=== PATIENT | female | born 1945 | race Caucasian/White ===

== ENCOUNTER 2017-05-01 02:18 | Inpatient (IN) | payer OTHER, MEDICARE ==
[~2017-05-01] VITALS: Ht 167.6 cm; Wt 70.3 kg
[2017-05-01] MEDS ORDERED: OXYCODONE HCL5 M2 PO (06:50)
[2017-05-01] MEDS ORDERED: TRAZODONE HCL50 M1 PO (06:51)
--- NOTE | 2017-05-01 09:50 | Operative Report ---
Operative/Inv Procedure Report Surgery Date: 05/01/17 Name of Procedure: Left total hip arthroplasty Pre-Operative Diagnosis: Left hip primary osteoarthritis Post-Operative Diagnosis: Same with final pathology pending Estimated Blood Loss: 150 mL Surgeon/Curam Developer: Melissa REYES,Derian Gould PA Anesthesia: general endotracheal tube Implants: Thorp secure fit femoral stem size 9 with a 127 neck angle Size 52 Trident acetabulum 36-2.5 Biolox femoral head Drains: none Specimens: Femoral head and acetabular reamings Microbiology: Urine Complications: None Condition: Stable Operative Indication: Patient is a 71-year-old woman with worsening hip pain on the left. She was diagnosed with osteoarthritis. Ongoing symptoms interfere with normal activities of daily living. Due to the severity of her osteoarthritis and lack of improvement with conservative measures, she wished to proceed with total hip arthroplasty. Risks, benefits and expectations of the surgical procedure were discussed which included but were not limited to persistent hip pain, need for substance surgery, infection, DVT, injury to blood vessel or nerve, leg length discrepancy and dislocation and anesthesia risks Operative/Procedure Note Note: Patient was brought to the operating room and transferred to the operating table. Once under appropriate anesthesia the patient was placed into a right lateral decubitus position with left side up. All bony prominences were well- padded. left lower external he was prepped and draped in standard fashion. Preoperative IV antibiotic's were given prophylactically. A standard posterior incision was made for anticipated superior approach to the hip. Incision was taken down sharply to the underlying fascia. The fascia was incised in line with the skin incision. This was primarily to the gluteus ainsley fascia. The retractors were placed. Hip was internally rotated placing the external rotators on tension. The piriformis is identified and reflected posteriorly for later repair. The interval between the gluteus minimus tendon and the posterior superior capsule was identified and a retractor was placed in this interval. A central portion of the posterior capsule was incised and reflected posteriorly. Superior and inferior portions of the capsule were excised. There was some generalized oozing throughout the procedure these were cauterized as needed. Hip was then dislocated. Severe end-stage degenerative changes of the femoral head were noted. Degenerative labral tissues were also noted. The femoral neck cut was then made based on preoperative templating and intraoperative measurements. I then exposed the acetabulum. End-stage degenerative changes of the acetabulum were confirmed as well. The labrum was excised circumferentially. Any remaining soft tissues were removed from the acetabular fossa with curettes. Reaming started a size 46 and progressed was size 51 for anticipated insertion of a size 52 acetabulum. After the 51 reamer I trialed a 50 trial. I was satisfied with the circumferential reaming and proceeded with copious irrigation followed by insertion of the definitive size 52 acetabular component at the appropriate anteversion and abduction based on anatomy, preoperative x-rays and the Vivi tower. Excellent scratch fit. I then placed 2 screws in the safe zone in standard fashion. After irrigation I placed the definitive liner to accept a 36 m femoral head. The locking mechanism was confirmed. I then placed a clean lap sponge in the acetabulum to protect the polyethylene during preparation of the femur. The leg was internally rotated 90 osteotome to lateralize my insertion site. This followed by hand reamers up to a size 8. It appeared that patient may need a slightly larger size but I trialed with the trial size 8. The broach itself she's was below my neck cut and therefore proceeded to prepare for size 9 femur. Also a size 9 would fit in the proximal femur. I felt that the 9 was a better size. I then broached to a size 9 after reaming to the appropriate size. Excellent scratch fit with a 9 broach. I did a trial reduction. I was satisfied with this the stability. This was later confirmed during the end of the procedure. I was satisfied with the 127 neck angle even though I did a trial 132 as well. I felt that match patient's anatomy and placed the abductors a good muscle tension. Leg lengths were good as well.. I then removed the trial components. Copious irrigation femoral canal followed. I then inserted the definitive size 9 Thorp secure fit femoral stem excellent scratch fit. Trialed a -2.5 femoral head and I was satisfied with the stability as well as cheondoism of leg lengths. There was no evidence of anterior instability with simultaneous extension and external rotation. No sign of posterior stability with simultaneous internal rotation adduction and process control supervisor flexion greater than 90. No significant tightness with the leg in full extension either. Leg lengths were checked again and I was satisfied with this. I removed the trial femoral head and dried the trunnion. The definitive size 36-2.5 Biolox femoral head was then inserted and the locking mechanism was confirmed. Hip was reduced and again the stability was confirmed. Opus irrigation followed. Every level of closure was followed by copious irrigation. The posterior capsule and piriformis were repaired. Fascia was closed with interrupted #1 Vicryl suture. Subcutaneous tissues closed in 2 layers with 2-0 Vicryl skin was closed with christine. Appropriate dressings were applied and patient was awakened and taken to recovery room in good condition. Blood loss was approximately 150 mL. No intraoperative complications Discharge Disposition: PACU
--- NOTE | 2017-05-01 09:53 | Admission Core Measures ---
Acute Coronary Syndrome (CM) ACS Core Measures Acute Coronary Syndrome Diagnosis No Congestive Heart Failure (NEW) CHF Core Measures Congestive Heart Failure Diagnosis No Cerebrovascular Accident (NEW) CVA Core Measures CVA/TIA Diagnosis No Venous Thromboembolism VTE Core Paula (View Protocol) VTE Risk Factors Surgery No Mechanical VTE Prophylaxis d/t N/A MechProphylax Ordered No VTE Pharm Prophylaxis d/t NA PharmProphylax ordered Problem List As ranked by this Provider includes Assessment & Plan 1. Arthritis of left hip HOME MEDS Home Med List Oxycodone HCl 5 MG CAPSULE 1 CAP PO 4XDP pain (Reported) Trazodone HCl 50 MG TABLET 1 TAB PO QPM sleep (Reported)
--- NOTE | 2017-05-01 10:43 | RADIOLOGY REPORT ---
EXAMINATION: XR HIP, LEFT CLINICAL INFORMATION: Status post total hip replacement COMPARISON: 04/09/2017 x-ray TECHNIQUE: Single portable view of the left hip. FINDINGS: Postsurgical changes of total left hip replacement. The acetabular and femoral compartments of the prosthesis are well aligned. Soft tissue air in the left gluteal region , expected in post operative status. Surgical christine in the left gluteal region noted. There is no evidence of fracture or loosening of the prosthesis. IMPRESSION: Status post total left hip replacement.
[2017-05-01 13:35] VITALS: BP 112/68
--- NOTE | 2017-05-01 14:32 | PN- Orthopedic ---
Subjective Subjective: POC feeling well, no complaints, minimal pain, good spirits. Objective Vital Signs and I&Os Vital Signs Date Time Temp Pulse Resp B/P B/P Pulse O2 O2 Flow FiO2 Mean Ox Delivery Rate 05/01 1335 98.0 72 18 112/68 97 Room Air Room Air Physical Exam: Well-developed well-nourished no apparent distress. HEENT: Atraumatic, extraocular motion intact Neck: Supple, no lymphadenopathy Respiratory: No respiratory distress Extremities: No edema left lower extremity hip dressing in place, abduction pillow in place Dressing clean dry and intact. Mild thigh swelling. No shortening or rotation Hip range of motion is limited and without unexpected pain Neurovascularly intact distally Bilateral calves are supple, nontender. Neuro: Alert and oriented x3 Psych: Mood affect normal, normal memory normal judgment. Skin: Warm and dry, no rash on exposed skin Assessment/Plan Assessment/Plan Postop day #0 status post left total hip arthroplasty Perioperative antibiotics. Pain medication as needed. Out of bed Physical therapy, weightbearing as tolerated IV fluids Regular diet Follow a.m. labs Eliquis for DVT prophylaxis starting tomorrow ALPS for DVT prophylaxis Regular home meds Dressing change postop day 2 Core Measures Venous Thromboembolism VTE Risk Factors Surgery No Mechanical VTE Prophylaxis d/t N/A MechProphylax Ordered No VTE Pharm Prophylaxis d/t NA PharmProphylax ordered
--- NOTE | 2017-05-01 14:34 | Surgical Discharge Summary ---
Visit Information Visit Dates Admission Date: 05/01/17 Discharge Date: 05/04/17 History of Present Illness Chief Complaint: Left hip pain secondary to primary unilateral osteoarthritis Medical History Neurological: NONE EENT: NONE Cardiovascular: NONE Respiratory: NONE Gastrointestinal: NONE Hepatic: NONE Renal: NONE Musculoskeletal: NONE Psychiatric: NONE Endocrine: NONE Blood Disorders: NONE Isolation History: Standard Surgical History Pertinent Surgical History: non-contributory Psychosocial History What is Your Primary Language? Ukrainian Review of Systems: noncontributory Hospital Course Course Attending Physician: Melissa REYES,[facility] Primary Care Physician: Socorro REYES,[facility] Course: Patient underwent left total hip arthroplasty secondary to her arthritis, surgery well without complications. She was transferred to the floor. She had an uneventful postoperative course, laboratory values were acceptable, vital signs stable, she performed well with physical therapy and was discharged after short postoperative stay. Complications: None Allergies: Coded Allergies: No Known Allergies (04/09/17) Disposition Summary Disposition Principal Diagnosis: Left primary unilateral hip osteoarthritis Additional Diagnosis: Status post left total hip arthroplasty Discharge Disposition: home health services Discharge Instructions General Discharge Information Code Status: Full Code Patient's Diet: Regular Patient's Activity: Per total hip precautions, weightbearing as tolerated Follow-Up Instructions/Appts: Follow-up as outpatient in 2 weeks [facility] for DVT prophylaxis Pain medication as needed Medications at Discharge Discharge Medications: Stop taking the following medications: Oxycodone HCl (Oxycodone HCl) 5 MG CAPSULE ORAL 4 times daily as needed Continue taking these medications: Trazodone HCl (Trazodone HCl) 50 MG TABLET 1 Tablet ORAL Every night Comments: Last Taken: 05/03/17 Time: 9:15 PM Start taking the following new medications: Apixaban (Eliquis) 2.5 MG TABLET 2.5 Milligram ORAL TWICE DAILY Qty = 60 No Refills Comments: Last Taken: 05/04/17 Time: 8:30 AM Docusate Sodium (Docusate Sodium) 100 MG CAPSULE 100 Milligram ORAL THREE TIMES DAILY Qty = 30 No Refills Comments: Last Taken: 05/04/17 Time: 8:30 AM Oxycodone HCl/Acetaminophen (Percocet 5-325 MG Tablet) 5 MG-325 MG TABLET 1-2 Tablet ORAL EVERY 4 HOURS NEEDED as needed for PAIN Qty = 36 No Refills Comments: Last Taken: 05/03/17 Time: 10:15 PM Polyethylene Glycol 3350 (Miralax) 17 GRAM/DOSE POWDER 17 Gram ORAL DAILY as needed for CONSTIPATION Qty = 7 No Refills Comments: Last Taken: 05/04/17 Time: 8:30 AM Sennosides/Docusate Sodium (Senna Plus Tablet) 8.6 MG-50 MG TABLET 2 Tablet ORAL Every night as needed for CONSTIPATION Qty = 20 No Refills Comments: Last Taken: 05/03/17 Time: 9:15 PM
[2017-05-01 16:08] VITALS: BP 108/70
[2017-05-01 18:22] VITALS: BP 102/70
[2017-05-01 20:32] VITALS: BP 100/60
[2017-05-01 21:39] VITALS: BP 100/60; BP 108/70
[2017-05-02 00:09] VITALS: BP 102/60
[2017-05-02 04:47] VITALS: BP 110/70
[2017-05-02 06:28] VITALS: BP 110/70
--- NOTE | 2017-05-02 07:21 | PN- Orthopedic ---
See Addendum Subjective Subjective: Complaints of headache, no other significant complaints, usual left hip postoperative pain as expected. No acute events overnight. Objective Vital Signs and I&Os Vital Signs Date Time Temp Pulse Resp B/P B/P Pulse O2 O2 Flow FiO2 Mean Ox Delivery Rate 05/02 0628 98.1 73 20 110/70 96 05/02 0447 98.1 73 20 110/70 96 05/02 0009 98.2 68 20 102/60 95 05/01 2139 98.2 64 18 100/60 94 05/01 2032 98.2 64 18 100/60 94 05/01 1822 97.9 74 18 102/70 97 05/01 1608 97.6 68 18 108/70 92 05/01 1335 98.0 72 18 112/ 97 Room Air Room Air Intake & Output 05/02 0800 05/02 0000 05/01 1600 05/01 0800 05/01 0000 04/30 1600 Intake Total 930 240 Output Total 900 1800 Balance 30 -1560 Intake, IV 450 Intake, Oral 480 240 Output, Urine 900 1800 Patient 155 lb Weight Weight Reported by Patient Measurement Method Physical Exam: Well-developed well-nourished no apparent distress. HEENT: Atraumatic, extraocular motion intact Neck: Supple, no lymphadenopathy Respiratory: No respiratory distress Extremities: No edema Left lower extremity hip dressing in place, Dressing clean dry and intact Mild thigh swelling No signs of infection. No shortening or rotation Abduction pillow in place Hip range of motion is limited and without unexpected pain Neurovascularly intact distally Bilateral calves are supple, nontender. Neuro: Alert and oriented x3 Psych: Mood affect normal, normal memory normal judgment. Skin: Warm and dry, no rash on exposed skin Results Last 48 Hours of Labs: Laboratory Tests 05/02 0710 Chemistry Sodium Pending Potassium Pending Chloride Pending Carbon Dioxide Pending Anion Gap Pending BUN Pending Creatinine Pending BUN/Creatinine Ratio Pending Hematology CBC w Diff Pending WBC Pending RBC Pending Hgb Pending Hct Pending MCV Pending MCH Pending MCHC Pending RDW Pending Plt Count Pending MPV Pending Assessment/Plan Assessment/Plan Postop day #1 status post left total hip arthroplasty Perioperative antibiotics. Pain medication as needed. Out of bed Physical therapy, weightbearing as tolerated DC IV fluids Noriega removed, trial of void Regular diet Follow a.m. labs Eliquis for DVT prophylaxis starting this morning Celebrex for postoperative pain/anti-inflammatory ALPS for DVT prophylaxis Regular home meds Dressing change postop day 2 Core Measures Venous Thromboembolism VTE Risk Factors Surgery No Mechanical VTE Prophylaxis d/t N/A MechProphylax Ordered No VTE Pharm Prophylaxis d/t NA PharmProphylax ordered
[2017-05-02 08:17] LABS: ABSOLUTE BASOPHIL COUNT 0 /CUMM (0.0-0.2); ABSOLUTE EOSINOPHIL COUNT 0 /CUMM (0.0-0.7); ABSOLUTE GRANULOCYTE CT 5.5 /CUMM (1.4-6.5); ABSOLUTE LYMPH COUNT 1.6 /CUMM (1.2-3.4); ABSOLUTE MONOCYTE COUNT 0.7 /CUMM (0.10-0.60); BASOPHIL % 0.4 % (0.0-2.0); EOSINOPHIL % 0.3 % (0-5); GRANULOCYTE % 69.8 % (42.2-75.2); MEAN CORPUSCULAR HGB 31.9 PG (27.0-31.0); MEAN CORPUSCULAR HGB CONC 33.9 G/DL (33.0-37.0); MEAN PLATELET VOLUME 7.2 FL (7.4-10.4); PLATELET COUNT 236 /CUMM (130-400); RBC DISTRIBUTION WIDTH 13.1 % (11.5-14.5); RED BLOOD CELL CT 2.98 /CUMM (4.20-5.40); WHITE BLOOD CELL COUNT 7.9 /CUMM (4.8-10.8)
[2017-05-02 11:36] VITALS: BP 110/55
[2017-05-02 14:59] VITALS: BP 104/50
[2017-05-02 21:58] VITALS: BP 100/64
[2017-05-03 07:05] VITALS: BP 90/60
--- NOTE | 2017-05-03 07:49 | PN- Orthopedic ---
Subjective Subjective: pT IN BED, PAIN /. HAD LEFT HIP PAIN OVERNIGHT THAT WAS RESPONDED WELL TO PERCOCET. TOLERATING DIET, NO N/V. NO BM YET. VOIDING WELL. AMBULATING WITH PT , ALTHOUGH SHE SAID IT WAS PAINFUL. PT IS A LITTLE NERVOUS ABOUT GOING HOME TODAY. DENIES CP/SOB, FEVER, GUILLEN Objective Vital Signs and I&Os Vital Signs Date Time Temp Pulse Resp B/P B/P Pulse O2 O2 Flow FiO2 Mean Ox Delivery Rate 05/03 0705 98.6 80 18 90/60 94 Room Air 05/02 2158 98.6 72 20 100/64 96 05/02 1854 98.4 05/02 1459 100.5 73 20 104/50 97 Room Air 05/02 1445 100.5 05/02 1136 100.0 83 18 110/55 97 Room Air Intake & Output 05/03 0800 05/03 0000 05/02 1600 05/02 0800 05/02 0000 05/01 1600 Intake Total 1250 930 240 Output Total 450 804 660 4878 Balance -450 300 30 -1560 Intake, IV 150 450 Intake, Oral 1100 480 240 Output, Urine 450 025 850 2969 Patient 155 lb Weight Weight Reported by Patient Measurement Method Physical Exam: GEN-NAD RESP-CLEAR CARDIAC-RRR ABD- ND, SOFT, NT EXT- LEFT HIP DRESSING CHAMNGED, HAL IN PLACE, NO DRAINAGE, NO SIGNS OF INFEWCTION. THIGH IS SOFT. DISTAL SENSORY AND MOTOR FUNCTIONM INTACT. 2+ pt PULSE BILATERALLY Current Medications: Current Medications Sig/Nilam Start time Last Medication Dose Route Stop Time Status Admin Apixaban 2.5 MG BID 05/02 1000 AC 05/02 PO 2208 Celecoxib 400 MG DAILY 05/02 0730 AC 05/02 PO 0840 Dextrose/Lactated 1,000 ML Q13H 05/01 1345 DC 05/01 Ringer's IV 2120 Docusate Sodium 100 MG .STK-MED ONE 05/02 2205 DC PO 05/02 220 Docusate Sodium 100 MG .STK-MED ONE 05/02 1738 DC PO 05/02 173 Docusate Sodium 100 MG TID 05/01 1600 AC 05/02 PO 2209 Morphine Sulfate 2 MG Q3P PRN 05/01 1345 AC 05/02 IV 1748 Morphine Sulfate 4 MG Q3P PRN 05/01 1345 AC IV Ondansetron HCl 4 MG Q6P PRN 05/01 1345 AC IV Oxycodone/ 1 TAB Q4P PRN 05/01 1345 AC 05/02 Acetaminophen PO 2210 Oxycodone/ 2 TAB Q4P PRN 05/01 1345 AC 05/03 Acetaminophen PO 0435 Patient Medication 1 ED ONE ONE 05/02 1600 DC Teaching ED 05/02 1601 Polyethylene Glycol 17 GM DAILY 05/02 1000 AC 05/02 PO 0840 Senna/Docusate Sodium 2 TAB QPM 05/01 2200 AC 05/01 PO 2124 Trazodone HCl 50 MG .STK-MED ONE 05/02 2206 DC PO 05/02 220 Trazodone HCl 50 MG AT BEDTIME NEED.. 05/01 1430 AC 05/02 PO 2210 Results Last 48 Hours of Labs: Laboratory Tests 05/02 0710 Chemistry Sodium (137 - 145 mmol/L) 140 Potassium (3.5 - 5.1 mmol/L) 3.8 Chloride (98 - 107 mmol/L) 104 Carbon Dioxide (22 - 30 mmol/L) 27 Anion Gap (5 - 16) 9 BUN (7 - 17 mg/dL) 11 Creatinine (0.5 - 1.0 mg/dL) 0.6 Estimated GFR (>60 ml/min) > 60 BUN/Creatinine Ratio (7 - 25 %) 18.3 Hematology CBC w Diff NO MAN DIFF REQ WBC (4.8 - 10.8 /CUMM) 7.9 RBC (4.20 - 5.40 /CUMM) 2.98 L Hgb (12.0 - 16.0 G/DL) 9.5 L Hct (37 - 47 %) 28.0 L MCV (81.0 - 99.0 FL) 94.0 MCH (27.0 - 31.0 PG) 31.9 H MCHC (33.0 - 37.0 G/DL) 33.9 RDW (11.5 - 14.5 %) 13.1 Plt Count (130 - 400 /CUMM) 236 MPV (7.4 - 10.4 FL) 7.2 L Gran % (42.2 - 75.2 %) 69.8 Lymphocytes % (20.5 - 51.1 %) 20.1 L Monocytes % (1.7 - 9.3 %) 9.4 H Eosinophils % (0 - 5 %) 0.3 Basophils % (0.0 - 2.0 %) 0.4 Absolute Granulocytes (1.4 - 6.5 /CUMM) 5.5 Absolute Lymphocytes (1.2 - 3.4 /CUMM) 1.6 Absolute Monocytes (0.10 - 0.60 /CUMM) 0.7 H Absolute Eosinophils (0.0 - 0.7 /CUMM) 0 Absolute Basophils (0.0 - 0.2 /CUMM) 0 Assessment/Plan Assessment/Plan 71YO F SP LEFT ADELITA POD2. STABLE PT- WBAT, POSTERIOR HIP PRECAUTIONS PAIN MANAGEMENT WITH ORAL MEDICATIONS DVT PPX-ELEQUIS AND ALPS REG DIET REGULAR HOME MEDICATIONS POSSIBLE DC TO HOME LATER TODAY, MAY STAY ONE MORE NIGHT IF COVERED BY INSURANCE Core Measures Venous Thromboembolism VTE Risk Factors Surgery No Mechanical VTE Prophylaxis d/t N/A MechProphylax Ordered No VTE Pharm Prophylaxis d/t NA PharmProphylax ordered
[2017-05-03 14:28] VITALS: BP 86/56
[2017-05-03 14:50] VITALS: BP 102/64
[2017-05-03 14:52] VITALS: BP 97/64
[2017-05-03 23:40] VITALS: BP 136/51
[2017-05-04 06:49] VITALS: BP 112/62
--- NOTE | 2017-05-04 08:57 | PN- Orthopedic ---
Subjective Subjective: Patient feeling well, pain controlled, no fever or flulike illness, no acute events overnight, she feels well enough to be discharged home today Objective Vital Signs and I&Os Vital Signs Date Time Temp Pulse Resp B/P B/P Pulse O2 O2 Flow FiO2 Mean Ox Delivery Rate 05/04 0649 98.5 77 18 112/62 96 Room Air 05/03 2340 98.3 64 20 136/51 97 Room Air 05/03 1452 68 97/64 05/03 1450 102/64 05/03 1428 98.1 72 20 86/56 97 Room Air Intake & Output 05/04 1600 05/04 0800 05/04 0000 05/03 1600 05/03 0800 05/03 0000 Intake Total 240 480 Output Total 100 450 Balance 240 480 -100 -450 Intake, Oral 240 480 Output, Urine 100 450 Physical Exam: Well-developed well-nourished no apparent distress. HEENT: Atraumatic, extraocular motion intact Neck: Supple, no lymphadenopathy Respiratory: No respiratory distress Extremities: No edema left lower extremity hip dressing in place, Dressing clean dry and intact Incision without erythema Mild thigh swelling No signs of infection. No shortening or rotation Hip range of motion is limited and without unexpected pain Neurovascularly intact distally Bilateral calves are supple, nontender. Neuro: Alert and oriented x3 Psych: Mood affect normal, normal memory normal judgment. Skin: Warm and dry, no rash on exposed skin Assessment/Plan Assessment/Plan Postoperative day #3 status post left total hip arthroplasty. Orthopedically stable for discharge home today. Continue weightbearing as tolerated, total hip precautions, dressing change tomorrow by VNA, Tegaderm remains in place, patient may shower, no bath, continue Eliquis for DVT prophylaxis and pain medication as needed, follow up in the office within 2 weeks, patient has appointment Core Measures Venous Thromboembolism VTE Risk Factors Surgery No Mechanical VTE Prophylaxis d/t N/A MechProphylax Ordered No VTE Pharm Prophylaxis d/t NA PharmProphylax ordered
[2017-05-04] MEDS ORDERED: DOCUSATE SODIU100 M3 PO (09:01)
[2017-05-04] MEDS ORDERED: MIRALAX119 GM PO (09:01)
[2017-05-04] MEDS ORDERED: PERCOCET 5-3251 EACH PO (09:01)
[2017-05-04] MEDS ORDERED: SENNA PLUS TAB1 EACH PO (09:01)
[2017-05-04] MEDS ORDERED: ELIQUIS2.5 M1 PO (09:01)
--- NOTE | 2017-05-04 09:14 | Patient Discharge Instructions ---
Discharge Instructions General Discharge Information You were seen/treated for: Left hip osteoarthritis status post left total hip arthroplasty You had these procedures: Left total hip arthroplasty Watch for these problems: Worsening abdominal pain, nausea, vomiting, fever, flulike illness Call Surgeon to remove: [place] (2w) Daily wet to dry dressings: No No bath, but you may shower: Yes Other wound care: You may shower with a Tegaderm dressing in place, no bath Special Instructions: Take pain medication as needed Take medication for constipation, increase fiber in your diet Take Eliquis for DVT prophylaxis Diet Continue normal diet: Yes Recommended Diet: Regular Activity Full Activity/No Limits: No Activity Self Limited: Yes Pounds, do NOT lift more than: 10 Other activity limits: Use walker when ambulating, total hip precautions in place at all times Acute Coronary Syndrome Inclusion Criteria At DC or during hospital stay patient has or had the following: ACS DIAGNOSIS No Discharge Core Measures Meds if any: Prescribed or Continued at Discharge Meds if any: NOT Prescribed or Continued at Discharge Congestive Heart Failure Inclusion Criteria At DC or during hospital stay patient has or had the following: CHF DIAGNOSIS No Discharge Core Measures Meds if any: Prescribed or Continued at Discharge Meds if any: NOT Prescribed or Continued at Discharge Cerebrovascular accident Inclusion Criteria At DC or during hospital stay patient has or had the following: CVA/TIA Diagnosis No Discharge Core Measures Meds if any: Prescribed or Continued at Discharge Meds if any: NOT Prescribed or Continued at Discharge Venous thromboembolism Inclusion Criteria VTE Diagnosis No VTE Type NONE VTE Confirmed by (Test) NONE Discharge Core Measures - Per Current guidelines, there needs to be overlap - treatment for the first 5 days of Warfarin therapy. - If discharged on Warfarin prior to 5 days of - overlap therapy, the patient will need to be - assessed for post discharge needs including - *Post discharge parental anticoagulation - *Warfarin and/or parental anticoagulation education - *Follow up date to check INR post discharge At least 5 days overlap therapy as Inpatient No Meds if any: Prescribed or Continued at Discharge Note: Overlap Therapy is Warfarin and Anticoagulant Meds if any: NOT Prescribed or Continued at Discharge
== END 2017-05-04 11:28 | disposition home health service (06) | DRG 470 ==
LOC: 2NB 02:18 → SDA 02:18 → ENRESERV 11:58 → ENTRNSPT 13:12 → EDTRNSPTSTS 13:16 → EDTRNSPT 13:16 → CMPTRNSPT 13:33 → 2NB 13:35 → ENPENDDIS 05-04 09:03 → ENTRNSPT 05-04 11:01 → EDTRNSPT 05-04 11:18 → EDTRNSPTSTS 05-04 11:18 → 2NB 05-04 11:28 → CMPTRNSPT 05-04 11:47
PROVIDERS: Physician Assistant Surgical
PROC: 0SRB04Z Replacement of Left Hip Joint with Ceramic on Polyethylene Synthetic Substitute, Open Approach (ICD-10-PCS; principal; 2017-05-01)
DX: M16.12 Unilateral primary osteoarthritis, left hip (principal); G47.00 Insomnia, unspecified; Z86.19 Personal history of other infectious and parasitic diseases; M47.9 Spondylosis, unspecified; Z90.49 Acquired absence of other specified parts of digestive tract
CPT/HCPCS: 2NBP; 36415; 36592; 73501; 82436; 87086; 88304; 97110-GO; 97116-GO; 97161-GP; 97530-GO; J1100; J2405; J3370; J7040; J7060